=== PATIENT | male | born 1955 | race Caucasian/White ===

== ENCOUNTER 2022-01-18 16:17 | Emergency (ER) | payer MEDICARE, SELFPAY ==
[2022-01-18 16:19] VITALS: BP 168/97; PULSE 71; RESP 18; TEMP 36.4; O2SAT 99; BMI 24.7
[2022-01-18 16:22] VITALS: BP 168/97; PULSE 70; RESP 21; TEMP 36.4; O2SAT 100
--- NOTE | 2022-01-18 16:29 | EKG12_ITS ---
Test Reason : CP Blood Pressure : / mmHG Vent. Rate : 069 BPM Atrial Rate : 069 BPM P-R Int : 180 ms QRS Dur : 100 ms QT Int : 412 ms P-R-T Axes : 060 -03 064 degrees QTc Int : 441 ms Normal sinus rhythm Normal ECG Confirmed by JE KINNEY, IRVING ([id number]), video news editor LUIS E CARR ([id number]) on 01/21/2022 9:08:25 AM Referred By: EREN Confirmed By:BRYCE WOOTEN MD
[2022-01-18] MEDS: LORazepam 2 MG/ML Syringe 0.5 MG IV (16:32)
[2022-01-18 16:58] LABS: Anion Gap 10 (5-15); BUN 36 mg/dL (7-18); BUN/Creat Ratio 27.7 RATIO (10-20); Calcium,Total 9.5 mg/dL (8.5-10.1); Chloride 107 mmol/L (98-107); EST Glomerular Filtration Rate 59 mL/min (>60); Est Glom Filt Rate - Afr Amer 71 mL/min (>60); Estimated Creatinine Clearance 61.35 ml/min; Glucose 112 mg/dL (74-106); Potassium 3.8 mmol/L (3.5-5.1); Sodium Level 143 mmol/L (136-145)
[2022-01-18 17:14] VITALS: BP 146/84; PULSE 53; RESP 14; O2SAT 96
--- NOTE | 2022-01-18 17:44 | EX.ED.DYSGE1 ---
HPI History of Present Illness Chief Complaint: Chest Pain Detail of Chief Complaint: Initially left upper extremity pain radiated into the chest and see HPI marva Informant: patient Onset/Context/Timing Onset: Hours Context: Sudden Onset Timing: Continuous Quality: Initially pain now complains of numbness in both extremities, perioral and Current Severity: Severe Maximum Severity: Severe Worsened by: Unknown Relieved by: Nothing Associated Symptoms Associated Symptoms: No other symptoms Narrative Narrative: Patient is a 66-year-old male who per has history of anxiety. He has history of hypercholesterolemia. He denies history of coronary disease. He denies history of smoking. He states he was helping his son move into his house. [place]. He states he initially had discomfort in his left arm that moved into his chest. There is no other associated symptoms. He then became short of breath. Shortly after becoming short of breath he became numb. States both upper extremities were numb. He had perioral numbness and numbness in his chest. He denies history of panic attacks. He denies depression. He does not believe he is anxious. He has no other complaints. Prior similar symptoms: No Recent Illness/Hospitalization: No PFSH PFSH Medical History no medical history no medical history Home Medications Advicor 10 mg PO.IVFORM DAILY 01/18/22 [History Last Taken Unknown] Allergy/AdvReac Type Severity Reaction Status Date / Time No Known Allergies Allergy Verified 01/18/22 16:18 Surgical History no surgical history no surgical history Social History (Updated 01/18/22 @ 17:[address] Micheal Sheth MD) household members: spouse Smoking Status: Never smoker substance use type: does not use ROS ROS ED Constitutional Constitutional ED: Denies chills, fever(s), subjective, sweats or weight loss Eyes Eyes: Denies blurry vision, change in vision or diplopia ENT ENT ED: Reports other Details: Perioral numbness ; Denies ear pain, rhinorrhea or sore throat Cardiovascular Cardiovascular: Reports chest pain and palpitations; Denies orthopnea, paroxysmal nocturnal dyspnea or racing heartbeat Respiratory/Chest Respiratory/Chest: Reports dyspnea; Denies cough, dyspnea on exertion, orthopnea or paroxysmal nocturnal dyspnea Gastrointestinal Gastrointestinal: Denies abdominal pain, melena, nausea or vomiting Genitourinary Genitourinary ED: Denies dysuria or hematuria Musculoskeletal Musculoskeletal: Denies arthralgias, back pain, myalgias or neck pain Integumentary Denies abscess, Abrasions or rash Neurologic Neurologic: Reports paresthesias; Denies headache(s) Psychiatric Psychiatric: Reports anxiety; Denies depression Endocrine Endocrinology: Denies cold intolerance or heat intolerance Hematologic/Lymphatic Hematologic/Lymphatic: Reports systems reviewed and no addt'l complaints, except as documented EXAM Physical Exam Const Vital Signs: 01/18/22 16:19 01/18/22 16:22 01/18/22 16:39 Temperature 97.6 F L 97.6 F L Temperature Source Temporal Temporal Pulse Rate 71 70 Respiratory Rate 18 21 H Respiratory Effort Short of Breath Blood Pressure 168/97 H 168/97 H Blood Pressure Mean 120 120 Pulse Ox 99 100 Oxygen Delivery Method Room Air Room Air 01/18/22 17:14 Temperature Temperature Source Pulse Rate 53 L Respiratory Rate 14 Respiratory Effort Blood Pressure 146/84 H Blood Pressure Mean 104 Pulse Ox 96 Oxygen Delivery Method Room Air Positive well nourished and well developed Constitutional Narrative: Patient is anxious. Patient is hyperventilating spite of the documented respirate of 18. He is breathing 26-30 times a minute. General Appearance ED: well developed; Negative for cyanotic, diaphoretic or pallor HEENT Reports dry mucous membranes HEENT Narrative: Head is atraumatic normocephalic. Ears normal. Nares patent. Uvula midline. No deviation of protrusion. No erythema exudate the posterior pharynx. Patient has a positive's Chvostek sign bilaterally. Mouth ED: Yes dry mucous membranes Mouth: dry mucous membranes Eyes PERRL and EOMs intact bilaterally General Eye ED: Negative for pale conjunctiva or scleral icterus Neck no lymphadenopathy, supple and no JVD Neck Narrative: Trachea is midline. There is no inspiratory stridor. There is no carotid bruit. Chest Wall inspection of chest normal and palpation of chest normal Resp clear to auscultation bilaterally Resp Narrative: Patient is hyperventilating Cardio regular rate, regular rhythm, S1 normal heart sound, S2 normal heart sound and no murmurs GI normal to inspection, nondistended, normoactive bowel sounds, non-tender, non-distended and no masses; Negative for hepatosplenomegaly Back/Spine Cervical Spine: Negative for cervical spine tenderness Lumbar Spine / Lower Back: Negative for lumbar spinal tenderness Extremity normal to inspection Extremity Narrative: Distal pulses are intact. General Extremety ED: Negative for edema or tenderness General Extremity: Negative for edema Neuro oriented x3, CN's II-XII intact bilaterally and no sensory deficits noted Sensorium / Orientation: alert Motor Exam: strength 5/5 throughout Psych Psych Narrative: In my opinion patient is anxious even though he is denying. He then began to cry. Skin no rashes or lesions noted, no wounds and skin turgor normal General Skin Exam: Negative for jaundice or pallor MDM MDM MDM Narrative Medical decision making narrative: EKG was done per nurse protocol. EKG rate was normal with a ventricular rate of 69. In light of patient had a positive's Chvostek sign and a positive Trousseau sign his findings are consistent with hyperventilation. Because of his hyperventilation is unknown. Basic metabolic panel was obtained to assure that there was no electrolyte abnormality. Patient is slightly dehydrated with an elevated BUN to creatinine ratio of 28:1. His son who is now present states he has not been drinking as much. He states he has been sweating profusely. He was reexamined he has no reproducible chest or upper extremity pain and his symptoms resolved after receiving 0.5 mg of Ativan IV push. Lab Data Labs: Laboratory Results - last 24 hr 01/18/22 16:20 Sodium 143 Potassium 3.8 Chloride 107 Carbon Dioxide 26.0 Anion Gap 10 BUN 36 H Creatinine 1.30 Estim Creat Clear Calc 61.35 Est GFR (MDRD) Af Amer 71 Est GFR (MDRD) Non-Af 59 L BUN/Creatinine Ratio 27.7 H Glucose 112 H Calcium 9.5 EKG Initial EKG: Attestation: I personally reviewed and interpreted this EKG as follows: Interpretation: Sinus Rhythm (Ventricular rate of 69 and the EKG is normal. [place] interval is 180 ms. QRS duration 100 ms. QT duration 412 ms. Drury is normal.) Discharge Plan Triage Chief Complaint: Chest Pain ED Provider: Micheal Sheth Dx/Rx/DC Orders Clinical Impression: Acute hyperventilation syndrome, Atypical chest pain Instructions: ED Hyperventilation Syndrome Prescriptions: No Action Advicor 10 mg PO.IVFORM DAILY Primary Care Provider: [facility] Doctor,Out of Referrals: [facility] Doctor,Out of [Primary Care Provider] - As Needed Disposition Disposition: Home, Self Care
== END 2022-01-18 18:02 | disposition home or self-care (01) ==
PROVIDERS: Emergency Provider Emergency Medicine; Visit Provider Emergency Medicine
DX: F45.8 Other somatoform disorders (principal); R07.89 Other chest pain; F41.9 Anxiety disorder, unspecified; E78.00 Pure hypercholesterolemia, unspecified; E86.0 Dehydration
CPT/HCPCS: 80048; 93005; 96374; 99284; A4216